=== PATIENT | male | born 1970 | race Caucasian/White ===

== ENCOUNTER 2023-09-14 09:10 | Outpatient (AMB) | payer OTHER, SELFPAY ==
--- NOTE | 2023-09-14 09:15 | A.OFFVIS_ITS ---
Vital Signs 09/14/23 09:22 Height 5 ft 11 in Weight 240 lb BMI 33.5 Blood Pressure Location Lt brachial Position Sitting Intake Visit Reasons: Colon Screening Intake Note: Patient is seen in office for colonoscopy screening. 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 male here today for pre colonoscopy screening.? Patient was sent to us by his PCP.? This is his first colonoscopy screening.? Patient denies any gastrointestinal symptoms in the past or at present.? Denies any personal or family history of gastrointestinal disease, colon polyps, or CRC.? Patient never had anesthesia in the past. Lower back surgery with epidural.? Negative for history of sleep apnea.? Denies any history of cardiac, renal, pulmonary, or hepatic disease.?? No history of infectious? diseases like hepatitis A, B, C, HIV or tuberculosis.? Patient is not on any anticoagulation therapy. [facility] Surgical History (Updated 09/14/23 @ 09:26 by RISSA Chan) History of back surgery (1996) Family History (Updated 09/14/23 @ 09:24 by RISSA Chan) Paternal Grandfather Cancer of unknown origin Social History (Updated 09/14/23 @ 09:24 by RISSA Chan) Alcohol intake: current Alcohol intake frequency: holidays/special occasions only Patient Tobacco Use Status: Never used Tobacco Physical Exam Vital Signs: BMI result Body Mass Index 33.5 Assessment & Plan Assessment & Plan (1) Screen for colon cancer: Code(s): Z12.11 - Encounter for screening for malignant neoplasm of colon Plan Patient denies any GI, cardiac or respiratory symptoms. ?Patient never had anesthesia in the past.? Denies any history of sleep apnea.? No history infectious diseases in the past or present.? Not on any anticoagulation therapy.? No family or personal history of colon cancer or polyps.? Patient denies melena, hematochezia, unintentional weight loss or ribbon like stools.? Discussed at length the pre-procedure,? prep, diet & medications as well as what to expect prior, during and after the procedure.?? Stressed the importance of good bowel prep. ?Recommended the use of Vaseline or Calmoseptine OTC & baby wipes with bowel movements to promote comfort.? ?Patient verbalizes understanding and agrees to plan of care.? He was given the opportunity to ask questions and all questions answered.? We will see him after the procedure.? Medications: New bisacodyl (Dulcolax (bisacodyl)) take 4 tabs at noon the day before your colonoscopy 20 mg (4 x 5 mg) PO ONCE 1 day 4 tabs 0RF Z12.11 - Encounter for screening for malignant neoplasm of colon polyethylene glycol 3350 (Miralax) As directed by gastroenterology department at [facility] 238 grams PO ONCE 238 grams 0RF Z12.11 - Encounter for screening for malignant neoplasm of colon Coding Level of Care Code New Pt Level 3 (72064) Diagnoses Screen for colon cancer Z12.11 Time Spent (min) 40 Comment 30 minutes spent with patient and additional 10 minutes spent reviewing his records
[2023-09-14 09:22] VITALS: BMI 33.5
== END 2023-09-14 10:02 | disposition home or self-care (01) ==
PROVIDERS: PCP Physician Assistant; Visit Provider Nurse Practitioner Family
DX: Z01.818 Encounter for other preprocedural examination (principal); Z12.11 Encounter for screening for malignant neoplasm of colon
CPT/HCPCS: S0285

== ENCOUNTER → 2023-09-14 09:10 | Outpatient (BNVA) | payer OTHER, SELFPAY | PROVIDERS: PCP Physician Assistant; Visit Provider Nurse Practitioner Family ==

== ENCOUNTER 2024-06-02 06:34 | Day surgery (SDC) | payer OTHER, SELFPAY ==
--- OUTSIDE RECORDS SUMMARY | 2024-05-02 10:50 | XMS_ITS | Continuity of Care Document ---
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 It does not include entries that were removed or entered in error. 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 Medication Details Route Status Patient Instructions Prescription Expires Prescription Number Last Dispense Date Ordering Provider Order Date Order Qty Source ATORVASTATI N CALCIUM (ATORVASTAT IN CALCIUM), 40 MG, TABLET, ORAL, MYLAN, 500 ea. BOTTLE Cancele d [id number] : 2023 0 Pharmac y Data Transac tion Service Facilit y ATORVASTATI N CALCIUM (ATORVASTAT IN CALCIUM), 40 MG, TABLET, ORAL, MYLAN, 500 ea. BOTTLE Active [id number] 4 2023 90 Pharmac y Data Transac tion Service Facilit y ATORVASTATI N CALCIUM (ATORVASTAT IN CALCIUM), 40 MG, TABLET, ORAL, MYLAN, 500 ea. BOTTLE Cancele d [id number] : 2023 0 Pharmac y Data Transac tion Service Facilit y ATORVASTATI N CALCIUM (ATORVASTAT IN CALCIUM), 80 MG, TABLET, ORAL, MYLAN, 500 ea. BOTTLE Active [id number] 4 2023 90 Pharmac y Data Transac tion Service Facilit y ATORVASTATI N CALCIUM (ATORVASTAT IN CALCIUM), 80 MG, TABLET, ORAL, MYLAN, 500 ea. BOTTLE Active [id number] 2023 90 Pharmac y Data Transac tion Service Facilit y VALACYCLOVI R (VALACYCLOV IR HCL), 500 MG, TABLET, ORAL, MYLAN, 90 ea. BOTTLE Cancele d [id number] : 2023 0 Pharmac y Data Transac tion Service Facilit y Allergies, Adverse Reactions, Alerts Combined list of allergies from Department of Defense and Veterans Affairs facilities. It does not include entries that were removed or entered in error. Substance Category Reaction Severity Reaction type Status Date Reported Comments Source No Known Allergies Drug allergy (disorder) active 06/16/2007 [place], [place] Immunizations Combined list of available immunizations from the Department of Defense and [facility] facilities. 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 Source influenza, injectable, quadrivalent- pf 2021 [id number] 150 [employer] comple t ed influenza , injectabl e, quadrival ent-pf 06/23/21 Given Ambulat ory Pharmac y influenza, injectable, quadrivalent- pf 2021 [id number] 150 [employer] comple t ed influenza , injectabl e, quadrival ent-pf 06/23/21 Given Ambulat ory Pharmac y Influenza, injectable, quadrivalent, preservative free 0 2021 [id number] 150 (IDB) complet ed Influenza , injectabl e, quadrival ent, preservat carol free [facility] meningococcal A,C,Y,W-135 (MCV4P) 2020 [id number] 114 [employer] complet ed meningoco ccal A,C,Y,W-1 35 (MCV4P) 10/11/20 Given Ambulat ory Pharmac y meningococcal A,C,Y,W-135 (MCV4P) 2020 [id number] 114 [employer] complet ed meningoco ccal A,C,Y,W-1 35 (MCV4P) 10/11/20 Given Ambulat ory Pharmac y meningococcal polysaccharid e (groups A, C, Y and W-135) diphtheria toxoid conjugate vaccine (MCV4P) 2 2020 [id number] 114 Se[employer]irus (SEQ) comple t ed meningoco ccal polysacch aride (groups A, C, Y and W-135) diphtheri a toxoid conjugate vaccine (MCV4P) DoD COVID Vaccine Moderna 2020 [id number] 207 complet ed COVID Vaccine Moderna 06/24/20 Given Ambulat ory Pharmac y COVID Vaccine Moderna 2020 [id number] 207 complet ed COVID Vaccine Moderna 06/24/20 Given Ambulat ory Pharmac y SARS-COV-2 (COVID-19) vaccine, mRNA, spike protein, LNP, preservative free, 100 mcg or 50 mcg dose 2 2020 [id number] 207 Moderna [employer] (MOD) complet ed SARS-COV- 2 (COVID-19 ) vaccine, mRNA, spike protein, LNP, preservat carol free, 100 mcg or 50 mcg dose DoD COVID Vaccine Moderna 2020 [id number] 207 complet ed COVID Vaccine Moderna 05/30/20 Given Ambulat ory Pharmac y SARS-COV-2 (COVID-19) vaccine, mRNA, spike protein, LNP, preservative free, 100 mcg or 50 mcg dose 1 2020 [id number] 207 Moderna [employer] (MOD) complet ed SARS-COV- 2 (COVID-19 ) vaccine, mRNA, spike protein, LNP, preservat carol free, 100 mcg or 50 mcg dose DoD influenza, injectable, quadrivalent- pf 2019 [id number] 150 Seqirus complet ed influenza , injectabl e, quadrival ent-pf 03/11/20 Given Ambulat ory Pharmac y influenza, injectable, quadrivalent- pf 2019 [id number] 278 150 Se[employer] complet ed influenza , injectabl e, quadrival ent-pf 03/11/20 Given Ambulat ory Pharmac y Influenza, injectable, quadrivalent, preservative free 0 2019 [id number] 278 150 Seqirus (SEQ) complet ed Influenza , injectabl e, quadrival ent, preservat carol free DoD tetanus, diphtheria, acellular pertu is 2019 [id number] 115 sanofi pasteur complet ed tetanus, diphtheri a, acellular pertussis 05/30/19 Given Ambulat ory Pharmac y tetanus, diphtheria, acellular pertu is 2019 [id number] 115 sanofi pasteur complet ed tetanus, diphtheri a, acellular pertussis 05/30/19 Given Ambulat ory Pharmac y tetanus toxoid, reduced diphtheria toxoid, and acellular pertu is vaccine, adsorbed 2 2019 [id number] 115 Sanofi Pasteur (PMC) complet ed tetanus toxoid, reduced diphtheri a toxoid, and acellular pertussis vaccine, adsorbed DoD influenza, injectable, quadrivalent- pf 2018 [id number] 038 150 Seqirus complet ed influenza , injectabl e, quadrival ent-pf 02/22/19 Given Ambulat ory Pharmac y influenza, injectable, quadrivalent- pf 2018 [id number] 038 150 Seqirus complet ed influenza , injectabl e, quadrival ent-pf 02/22/19 Given Ambulat ory Pharmac y Influenza, injectable, quadrivalent, preservative free 0 2018 [id number] 038 150 Seqirus (SEQ) complet ed Influenza , injectabl e, quadrival ent, preservat carol free DoD influenza, seasonal, injectable-pf 2017 [id number] 140 Seqirus complet ed influenza , seasonal, injectabl e-pf 03/01/18 Given Ambulat ory Pharmac y influenza, seasonal, injectable-pf 2017 [id number] 140 Seqirus complet ed influenza , seasonal, injectabl e-pf 03/01/18 Given Ambulat ory Pharmac y Influenza, seasonal, injectable, preservative free 0 2017 [id number] 140 Seqirus (SEQ) comple t ed Influenza , seasonal, injectabl e, preservat carol free DoD influenza, injectable, quadrivalent- pf 2017 [id number] 150 Seqirus complet ed influenza , injectabl e, quadrival ent-pf 06/25/17 Given Ambulat ory Pharmac y influenza, injectable, quadrivalent- pf 2017 [id number] 150 Seqirus complet ed influenza , injectabl e, quadrival ent-pf 06/25/17 Given Ambulat ory Pharmac y Influenza, injectable, quadrivalent, preservative free 0 2017 [id number] 150 Seqirus (SEQ) comple t ed Influenza , injectabl e, quadrival ent, preservat carol free DoD influenza, injectable, quadrivalent 2015 [id number] 158 Seqirus complet ed influenza , injectabl e, quadrival ent 03/16/16 Given Ambulat ory Pharmac y influenza, injectable, quadrivalent 2015 [id number] 158 Seqirus complet ed influenza , injectabl e, quadrival ent 03/16/16 Given Ambulat ory Pharmac y influenza, injectable, quadrivalent, contains preservative 0 2015 [id number] 158 Seqirus (SEQ) comple t ed influenza , injectabl e, quadrival ent, contains preservat carol DoD influenza, seasonal, injectable-pf 2014 [id number] 140 CSL Behring complet ed influenza , seasonal, injectabl e-pf 02/18/15 Given Ambulat ory Pharmac y influenza, seasonal, injectable-pf 2014 [id number] 140 CSL [employer]ring complet ed influenza , seasonal, injectabl e-pf 02/18/15 Given Ambulat ory Pharmac y Influenza, seasonal, injectable, preservative free 1 2014 [id number] 140 [employer]SL [employer] (CSL) complet ed Influenza , seasonal, injectabl e, preservat carol free DoD measles/mumps /rubella virus vaccine 2014 [id number] 03 Merck & Company Inc complet ed measles/m umps/rube lla virus vaccine 08/21/14 Given Ambulat ory Pharmac y measles/mumps /rubella virus vaccine 2014 [id number] 03 Merck & Company Inc complet ed measles/m umps/rube lla virus vaccine 08/21/14 Given Ambulat ory Pharmac y measles, mumps and rubella virus vaccine 0 2014 [id number] 03 Merck (MSD) complet ed measles, mumps and rubella virus vaccine DoD varicella virus vaccine 2 2014 UNK 21 Unknown (UNK) Not Given varicella virus vaccine DoD influenza, seasonal, injectable-pf 2013 [id number] 140 GlaxoSmithKli ne complet ed influenza , seasonal, injectabl e-pf 02/12/14 Given Ambulat ory Pharmac y influenza, seasonal, injectable-pf 2013 [id number] 140 GlaxoSmithKli ne complet ed influenza , seasonal, injectabl e-pf 02/12/14 Given Ambulat ory Pharmac y Influenza, seasonal, injectable, preservative free 1 2013 [id number] 140 [facility] (SKB) complet ed Influenza , seasonal, injectabl e, preservat carol free DoD Influenza, injectable, MDCK, preservative free 2013 TARIK TAFOYA () Not Given Influenza , injectabl e, MDCK, preservat carol free DoD influenza, seasonal, injectable-pf 2012 140 complet ed influenza , seasonal, injectabl e-pf 02/09/13 Given Ambulat ory Pharmac y Influenza, seasonal, injectable, preservative free 0 2012 140 (MVX) complet ed Influenza , seasonal, injectabl e, preservat carol free DoD influenza virus vaccine, live 2011 [id number] 111 CSL Behring complet ed influenza virus vaccine, live 02/12/12 Given Ambulat ory Pharmac y influenza virus vaccine, live 2011 [id number] 111 [employer] complet ed influenza virus vaccine, live 02/12/12 Given Ambulat ory Pharmac y influenza virus vaccine, live, attenuated, for intranasal use 1 2011 [id number] 111 [employer]SL [employer] (CSL) complet ed influenza virus vaccine, live, attenuate d, for intranasa l use DoD influenza, seasonal, injectable 2010 [id number] 141 sanofi pasteur complet ed influenza , seasonal, injectabl e 04/03/11 Given Ambulat ory Pharmac y influenza, seasonal, injectable 2010 [id number] 141 sanofi pasteur complet ed influenza , seasonal, injectabl e 04/03/11 Given Ambulat ory Pharmac y Influenza, seasonal, injectable 6 2010 [id number] 141 Sanofi Pasteur ([facility]) complet ed Influenza , seasonal, injectabl e DoD vaccinia (smallpox) vaccine 2009 VV04-00 3A 75 Unknown complet ed vaccinia (smallpox ) vaccine 12/14/09 Given Ambulat ory Pharmac y typhoid Vi capsular polysaccharid e vac 2009 [id number] 101 sanofi pasteur complet ed typhoid Vi capsular polysacch aride vac 12/14/09 Given Ambulat ory Pharmac y anthrax vaccine 2009 [id number] 24 [employer] complet ed anthrax vaccine 12/14/09 Given Ambulat ory Pharmac y typhoid Vi capsular polysaccharid e vac 2009 [id number] 101 sanofi pasteur complet ed typhoid Vi capsular polysacch aride vac 12/14/09 Given Ambulat ory Pharmac y vaccinia (smallpox) vaccine 2009 VV04-00 3A 75 Unknown complet ed vaccinia (smallpox ) vaccine 12/14/09 Given Ambulat ory Pharmac y anthrax vaccine 2009 [id number] 24 [employer] complet ed anthrax vaccine 12/14/09 Given Ambulat ory Pharmac y anthrax vaccine 5 2009 [id number] 24 [employer] [place] (MIP) complet ed anthrax vaccine DoD vaccinia (smallpox) vaccine 1 2009 VV04-00 3A 75 Unknown (UNK) complet ed vaccinia (smallpox ) vaccine DoD typhoid Vi capsular polysaccharid e vaccine 1 2009 [id number] 101 Sanofi Pasteur (PMC) complet ed typhoid Vi capsular polysacch aride vaccine DoD tetanus, diphtheria, acellular pertu is 2008 [id number] 115 sanofi pasteur complet ed tetanus, diphtheri a, acellular pertussis 05/14/09 Given Ambulat ory Pharmac y influenza virus vaccine, live 2008 [id number] 111 [employer] comple t ed influenza virus vaccine, live 05/14/09 Given Ambulat ory Pharmac y influenza virus vaccine, live 2008 [id number] 111 [employer] Inc comple t ed influenza virus vaccine, live 05/14/09 Given Ambulat ory Pharmac y tetanus, diphtheria, acellular pertu is 2008 [id number] 115 sanofi pasteur complet ed tetanus, diphtheri a, acellular pertussis 05/14/09 Given Ambulat ory Pharmac y influenza virus vaccine, live, attenuated, for intranasal use 1 2008 [id number] 111 [employer] Inc[employer] (MED) complet ed influenza virus vaccine, live, attenuate d, for intranasa l use DoD tetanus toxoid, reduced diphtheria toxoid, and acellular pertu is vaccine, adsorbed 1 2008 [id number] 115 Sanofi Pasteur ([facility]) complet ed tetanus toxoid, reduced diphtheri a toxoid, and acellular pertussis vaccine, adsorbed DoD hepatitis B adult vaccine 2007 [id number] 43 GlaxoSmithKli ne complet ed hepatitis B adult vaccine 03/22/08 Given Ambulat ory Pharmac y influenza virus vaccine, live 2007 [id number] 111 [facility]Life [facility] comple t ed influenza virus vaccine, live 03/22/08 Given Ambulat ory Pharmac y hepatitis B adult vaccine 2007 [id number] [id number] 43 GlaxoSmithKli ne complet ed hepatitis B adult vaccine 03/22/08 Given Ambulat ory Pharmac y hepatitis B vaccine, adult dosage 3 2007 [id number] 43 [facility] (SKB) complet ed hepatitis B vaccine, adult dosage DoD influenza virus vaccine, live, attenuated, for intranasal use 1 2007 [id number] 111 [employer] Inc[employer] (MED) complet ed influenza virus vaccine, live, attenuate d, for intranasa l use DoD anthrax vaccine 2007 [id number] 24 [employer] complet ed anthrax vaccine 08/18/07 Given Ambulat ory Pharmac y influenza virus vaccine,split 2007 [id number] 15 GlaxoSmithKli ne complet ed influenza virus vaccine,s plit 08/18/07 Given Ambulat ory Pharmac y hepatitis B adult vaccine 2007 [id number] [id number] 43 GlaxoSmithKli ne complet ed hepatitis B adult vaccine 08/18/07 Given Ambulat ory Pharmac y anthrax vaccine 2007 [id number] 24 [employer] complet ed anthrax vaccine 08/18/07 Given Ambulat ory Pharmac y influenza virus vaccine,split 2007 [id number] 15 GlaxoSmithKli ne complet ed influenza virus vaccine,s plit 08/18/07 Given Ambulat ory Pharmac y hepatitis B adult vaccine 2007 [id number] 8AA 43 GlaxoSmithKli ne complet ed hepatitis B adult vaccine 08/18/07 Given Ambulat ory Pharmac y influenza virus vaccine, split virus (incl. purified surface antigen)-reti red CODE 1 2007 [id number] 15 [facility] (B) complet ed influenza virus vaccine, split virus (incl. purified surface antigen)- retired CODE DoD anthrax vaccine 4 2007 [id number] [employer] [place] ([facility]) complet ed anthrax vaccine DoD hepatitis B vaccine, adult dosage 2 2007 [id number] [id number] 43 [facility] (B) complet ed hepatitis B vaccine, adult dosage DoD hepatitis B adult vaccine 2006 [id number] 43 Merck & Company Inc complet ed hepatitis B adult vaccine 01/28/07 Given Ambulat ory Pharmac y hepatitis B vaccine, adult dosage 1 2006 [id number] 43 [employer] ([employer]) (MSD) complet ed hepatitis B vaccine, adult dosage DoD anthrax vaccine 2006 [id number] 24 [employer] complet ed anthrax vaccine 12/23/06 Given Ambulat ory Pharmac y anthrax vaccine 3 2006 [id number] 24 [employer] [place] ([facility]) complet ed anthrax vaccine DoD anthrax vaccine 2005 [id number] 24 [employer] complet ed anthrax vaccine 05/08/06 Given Ambulat ory Pharmac y anthrax vaccine 2005 [id number] 24 [employer] complet ed anthrax vaccine 05/08/06 Given Ambulat ory Pharmac y anthrax vaccine 2 2005 [id number] 24 [employer] [place] ([facility]) complet ed anthrax vaccine DoD anthrax vaccine 2005 [id number] 24 [employer] complet ed anthrax vaccine 04/14/06 Given Ambulat ory Pharmac y influenza virus vaccine,split 2005 [id number] 15 sanofi pasteur complet ed influenza virus vaccine,s plit 04/14/06 Given Ambulat ory Pharmac y anthrax vaccine 2005 [id number] 24 [employer] complet ed anthrax vaccine 04/14/06 Given Ambulat ory Pharmac y influenza virus vaccine,split 2005 [id number] 15 sanofi pasteur complet ed influenza virus vaccine,s plit 04/14/06 Given Ambulat ory Pharmac y influenza virus vaccine, split virus (incl. purified surface antigen)-reti red CODE 1 2005 [id number] 15 Sanofi Pasteur ([facility]) complet ed influenza virus vaccine, split virus (incl. purified surface antigen)- retired CODE DoD varicella virus vaccine 0 2005 21 () Not Given varicella virus vaccine DoD anthrax vaccine 1 2005 [id number] 24 [employer] [facility] ([facility]) complet ed anthrax vaccine DoD influenza virus vaccine,split 2004 [id number] 15 sanofi pasteur complet ed influenza virus vaccine,s plit 03/13/05 Given Ambulat ory Pharmac y influenza virus vaccine, split virus (incl. purified surface antigen)-reti red CODE 1 2004 [id number] 15 Sanofi Pasteur ([facility]) complet ed influenza virus vaccine, split virus (incl. purified surface antigen)- retired CODE DoD hepatitis A adult vaccine 2004 [id number] 52 Merck & Company Inc complet ed hepatitis A adult vaccine 12/04/04 Given Ambulat ory Pharmac y hepatitis A adult vaccine 2004 [id number] 52 Merck & Company Inc complet ed hepatitis A adult vaccine 12/04/04 Given Ambulat ory Pharmac y hepatitis A vaccine, adult dosage 2 2004 [id number] 52 Merck (MSD) complet ed hepatitis A vaccine, adult dosage DoD tuberculin purified protein derivative 2001 UNK 96 Unknown complet ed tuberculi n purified protein derivativ e 08/09/01 Given Ambulat ory Pharmac y tuberculin purified protein derivative 2000 NONE 96 Unknown complet ed tuberculi n purified protein derivativ e 01/21/01 Given Ambulat ory Pharmac y hepatitis A adult vaccine 2000 UNK 52 Unknown complet ed hepatitis A adult vaccine 11/28/00 Given Ambulat ory Pharmac y hepatitis A adult vaccine 2000 UNK 52 Unknown complet ed hepatitis A adult vaccine 11/28/00 Given Ambulat ory Pharmac y hepatitis A vaccine, adult dosage 1 2000 UNK 52 Unknown (UNK) comple t ed hepatitis A vaccine, adult dosage DoD hepatitis A adult vaccine 2000 UNK 52 Unknown complet ed hepatitis A adult vaccine 11/27/00 Given Ambulat ory Pharmac y hepatitis A vaccine, adult dosage 1 2000 UNK 52 Unknown (UNK) comple t ed hepatitis A vaccine, adult dosage DoD poliovirus vaccine, unspecified 1999 UNK 89 Unknown complet ed polioviru s vaccine, unspecifi ed 04/18/00 Given Ambulat ory Pharmac y yellow fever vaccine 1999 UNK 37 Unknown complet ed yellow fever vaccine 04/18/00 Given Ambulat ory Pharmac y tetanus-dipht h toxoids (Td) adult/adol 1999 UNK 09 Unknown complet ed tetanus-d iphth toxoids (Td) adult/ado l 04/18/00 Given Ambulat ory Pharmac y poliovirus vaccine, unspecified 1999 UNK 89 Unknown complet ed polioviru s vaccine, unspecifi ed 04/18/00 Given Ambulat ory Pharmac y tetanus-dipht h toxoids (Td) adult/adol 1999 UNK 09 Unknown complet ed tetanus-d iphth toxoids (Td) adult/ado l 04/18/00 Given Ambulat ory Pharmac y yellow fever vaccine 1999 UNK 37 Unknown complet ed yellow fever vaccine 04/18/00 Given Ambulat ory Pharmac y tetanus and diphtheria toxoids, adsorbed, preservative free, for adult use (2 Lf of tetanus toxoid and 2 Lf of diphtheria toxoid) 0 1999 UNK 09 Unknown (UNK) comple t ed tetanus and diphtheri a toxoids, adsorbed, preservat carol free, for adult use (2 Lf of tetanus toxoid and 2 Lf of diphtheri a toxoid) DoD yellow fever vaccine 0 1999 UNK 37 Unknown (UNK) comple t ed yellow fever vaccine DoD poliovirus vaccine, unspecified formulation 0 1999 UNK 89 Unknown (UNK) comple t ed polioviru s vaccine, unspecifi ed formulati on DoD typhoid vaccine, unspecified formulation 1999 UNK 91 Unknown complet ed typhoid vaccine, unspecifi ed formulati on 02/29/00 Given Ambulat ory Pharmac y typhoid vaccine, unspecified formulation 1999 UNK 91 Unknown complet ed typhoid vaccine, unspecifi ed formulati on 02/29/00 Given Ambulat ory Pharmac y typhoid vaccine, unspecified formulation 0 1999 UNK 91 Unknown (UNK) comple t ed typhoid vaccine, unspecifi ed formulati on DoD meningococcal polysaccharid e (MPSV4) 1999 UNK 32 Unknown complet ed meningoco ccal polysacch aride (MPSV4) 02/17/00 Given Ambulat ory Pharmac y measles/mumps /rubella virus vaccine 1999 UNK 03 Unknown complet ed measles/m umps/rube lla virus vaccine 02/17/00 Given Ambulat ory Pharmac y measles/mumps /rubella virus vaccine 1999 UNK 03 Unknown complet ed measles/m umps/rube lla virus vaccine 02/17/00 Given Ambulat ory Pharmac y meningococcal polysaccharid e (MPSV4) 1999 UNK 32 Unknown complet ed meningoco ccal polysacch aride (MPSV4) 02/17/00 Given Ambulat ory Pharmac y measles, mumps and rubella virus vaccine 0 1999 UNK 03 Unknown (UNK) comple t ed measles, mumps and rubella virus vaccine DoD meningococcal polysaccharid e vaccine (MPSV4) 0 1999 UNK 32 Unknown (UNK) comple t ed meningoco ccal polysacch aride vaccine (MPSV4) DoD Vital Signs Combined list of inpatient and outpatient Vital Signs from Department of Defense and Veterans Affairs, ranging from 12 months to all on record, depending upon the facility. Vital Sign Value Date Comments Source No data available for this section Ambulatory Pharmacy Encounters Combined list of: 1) Encounters from Department of Veterans Affairs facilities going back up to thelast 18 months. 2) Encounters from the Department of Defense facilities going back up to 280 months. Location Location Details Encounter Type Encounter Number Reason For Visit Attending Provider ADM Date DC Date Status Disposition Source [facility] OUTPATIENT [id number] cdtf/tr stefani/ KIMBERLY Nassar 08/01 Released w/o Limitations [facility] F) [facility] DENTAL [id number] exam MARCELA HERMAN 02/01 Released w/o Limitations [facility] ) [facility]) DENTAL [id number] ANNIE Hairston 02/01 Released w/o Limitations [facility](D ental Clinic FLORES) [place]([facility]) OUTPATIENT [id number] MEDS ( 1-181,P RT MARILU REYNOLDS) MARISA ANDRE ALAN 01/03 Released w/o Limitations [place]([facility]) [facility] OUTPATIENT [id number] 03/15 Released w/o Limitations [facility] OUTPATIENT [id number] 07/05 Released w/o Limitations Theater Facilit y [facility](Patrick scom [facility] Team B) TELE CONSULT [id number] RONALDO Zepeda 08/11 [facility](H anscom [facility] Team B) [facility](Opt ometry [facility]) OUTPATIENT [id number] Annual Eye [facility] 08/24 Released w/o Limitations [facility](O ptometr y Cl [facility]) [facility](Opt ometry Cl [facility]) OUTPATIENT [id number] f/u retinal hemorrh age superfi cial left eye [facility] 10/07 Released w/o Limitations [address] [place] [address](O ptometr y Cl [place]) [place], [place]([facility]) OUTPATIENT [id number] Notes Entered by: ERIKA MARSHALL 27 Feb 2016 0612 ------- ------- ------- ------- -- Metabol ic Test BRENDAN CHASE 02/26 Released w/o Limitations [place], [place]([facility]) [place]([facility]) OUTPATIENT [id number] Notes Entered by: ERIKA MARSHALL 29 Feb 2016 0715 ------- ------- ------- ------- -- LISA CAMEJO 02/28 Released w/o Limitations [place], [place]([facility]) [address] [place] [address]([facility] Team [facility]) TELE CONSULT [id number] Notes Entered by: ALL MORELREINIER NANCY 28 Oct 2021 1014 ------- ------- ------- ------- -- Other - Separat ing from INDU Vital 10/28 Other Not Elsewhere Classified [facility]) [facility]) TELE CONSULT [id number] Notes Entered by: MARSHALL KAUR 10 Dec 2021 1106 ------- ------- ------- ------- -- OTHER- INDU MARTÍNEZ 12/10 Other Not Elsewhere Classified [facility]) [address] [place] [address]([facility]) OUTPATIENT [id number] [facility] Resched VERONICA Talbert 12/17 Released w/o Limitations [address] [place] [address] Group([facility]) [address] [place] [address]([facility]) OUTPATIENT [id number] [facility] hearing exam JOANNE BUENO 12/18 Released w/o Limitations [address] [place] [address]([facility]) Procedures Combined list of: 1) Procedures from Department of Veterans Affairs facilities [facility], not all VA non-surgical procedures are included; 2) All procedures from the Department of Defense facilities. Procedure Procedure Type Code Date Perfomer Comments Sourc e No data available for this section Ambulatory Pharmacy Weight management cla es, non-physician provider, per se ion 2015 LISA NIETO DoD Vital Signs Recorded Vital Signs Recorded 2015 BRENDAN CHASE Pulmon Function - O2 Uptake - Gas Analysis [place], [place] Pulmon Function - [place]2 [place] [address] 2015 BRENDAN CHASE Ophthalmological Prior Patient Start Comprehensive Care Ophthalmological Prior Patient Start Comprehensive Care 06783 2011 FOREST SAL[facility]ON [facility] Determination Of Refractive State Determination Of Refractive State 30805 2011 [facility] Ophthalmological New Patient Start Comprehensive Care Ophthalmological New Patient Start Comprehensive Care 06147 2011 [facility] Health And Behav A e mt Each 15 Min Initial A e ment Health And Behav Assessmt Each 15 Min Initial Assessment 47112 2010 LISA CANDELARIO [facility] Clinical Social Work Individual Outpatient Counseling 30 Minutes Clinical Social Work Individual Outpatient Counseling 30 Minutes 40135 2009 MONIQUE HANNAH [facility] Threshold Audiogram (Pure Tone) Threshold Audiogram (Pure Tone) 60251 JOANNE BUENO [facility] Preventive Medicine Administration Of Health Risk Questionnaire Patient-Focused Preventive Medicine Administration Of Health Risk Questionnaire Patient-Focused 04551 VERONICA IBARRA [facility] Threshold Audiogram Right Ear Threshold Audiogram Right Ear 15498 FREDCHIRAG VargasTTE [facility] Threshold Audiogram Left Ear Threshold Audiogram Left Ear 27364 FRED, VERONICA [facility] PURE TONE AUDIOMETRY (THRESHOLD); AIR ONLY 2002 [facility] OPHTHALMOLOGICAL SERVICES: MEDICAL EXAMINATION AND EVALUATION, WITH INITIATION OR CONTINUATION OF DIAGNOSTIC AND TREATMENT PROGRAM; COMPREHENSIVE, ESTABLISHED PATIENT, 1 OR MORE VISITS 2002 [facility] ELECTROCARDIOGRAM, ROUTINE ECG WITH AT LEAST 12 LEADS; TRACING ONLY, WITHOUT INTERPRETATION AND REPORT 2002 [facility] PURE TONE AUDIOMETRY (THRESHOLD); AIR ONLY 2010 [facility] HEALTH&BEHAV ASSESSMENT (EG, HEALTH-FOC CLINICAL INTERVIEW, BEHAVIORAL OBSERVATIONS, PSYCHOPHYSICOLOGICAL MONITOR, HEALTH-ORIENT QUESTIONNAIRES), EA 15 MIN [id number] W THE PATIENT; INIT ASSESSMENT 2010 [facility] PURE TONE AUDIOMETRY (THRESHOLD); AIR ONLY 2010 [facility] TYPHOID VACCINE, CAPSULAR POLYSACCHARIDE (VICPS), FOR INTRAMUSCULAR USE 2009 [facility] PURE TONE AUDIOMETRY (THRESHOLD); AIR ONLY 2009 [facility] INDIVIDUAL PSYCHOTHERAPY, INSIGHT ORIENTED, BEHAVIOR MODIFYING AND/OR SUPPORTIVE, IN AN OFFICE OR OUTPATIENT FACILITY, APPROXIMATELY 20 TO 30 MINUTES [id number] WITH THE PATIENT 2009 [facility] PURE TONE AUDIOMETRY (THRESHOLD); AIR ONLY 2021 [facility] OPHTHALMOLOGICAL SERVICES: MEDICAL EXAMINATION AND EVALUATION, WITH INITIATION OR CONTINUATION OF DIAGNOSTIC AND TREATMENT PROGRAM; COMPREHENSIVE, ESTABLISHED PATIENT, 1 OR MORE VISITS 2011 [facility] DETERMINATION OF REFRACTIVE STATE 2011 [facility] MEDICAL NUTRITION THERAPY; GROUP (2 OR MORE INDIVIDUAL(S)), EACH 30 MINUTES 2005 [facility] SCREENING TEST, PURE TONE, AIR ONLY 2004 [facility] WEIGHT MANAGEMENT CLASSES, NON-PHYSICIAN PROVIDER, PER SESSION 2015 [facility] VITAL SIGNS (TEMPERATURE, PULSE, RESPIRATORY RATE, AND BLOOD PRESSURE) DOCUMENTED AND REVIEWED (CAP) (EM) 2015 [facility]D Social History Combined list of available smoking, tobacco, and other social history from Department of Defense and Veterans Affairs facilities. Social History Type Response Date Comment Sourc e This section is an empty social history section. DoD Assessment and Plan Combined list of future care activities from Department of Defense and Veterans Affairs facilities (e.g., assessment and plan notes, appointments, orders, and referrals). Additional future care activities may be listed in the Plan of Care section. Result Assessment and Plan Date Source Assessment and Plan No data available for this section 05/02/2024 Ambulatory Pharmacy Functional Status Combined list of recent functional and cognitive assessments recorded at Department of Defense and Veterans Affairs (DE).VA Functional Power Measurement (FIM) Scale: 1 = Total Assistance (Subject = 0% +), 2 = Maximal Assistance (Subject = 25% +), 3 = Moderate Assistance (Subject = 50% +), 4 = Minimal Assistance (Subject = 75% +), 5 = Supervision, 6 = Modified Power (Device), 7 = Complete Power (Timely, Safely). Assessment Date/Time Source Assessment Type Assessment Skill Assessment Score Assessment Details No data available for this section
--- OUTSIDE RECORDS SUMMARY | 2024-05-02 10:50 | XMS_ITS | Data Portability ---
Author Organization [facility] Home Service Address [address] [facility] [place] [address] Assessment Encounter Date Assessment Date Assessment LastModified by Organization Details LastModified Time 11/19/2021 11/19/2021 Patient agreed and verbally consents to this audio and video Telehealth appt via a secure platform [email or web address] Not available 11/19/2021 14:03:13 Plan of Treatment Reminders Order Date Submit Date Provider Last Modified By Organization Details Last Modified Time Details Appointments None recorded. Lab lipid panel, serum 2020 021 [facility], [address] [place] [address], [place], [address], 14:06:59 Referral orthopedic referral 2018 019 DIDIER Ulloa MD, [address] [place], [address], 9 13:11:52 Procedures None recorded. Surgeries None recorded. Imaging XR, shoulder 2018 019 [facility], [address] [place], [address], 9 14:14:44 MRI, shoulder, w/o contrast 2018 019 [email or web address], [address] [place] [address], [address], 9 08:13:34 Medication Orders Patanol 0.1 % eye drops 2018 [facility], [address] [place], [place], [id number], 9 10:46:37 atorvastat in 40 mg tablet 2020 021 [email or web address] [facility]57297, [address] [place], [place], [id number], 4 10:08:15 valacyclov ir 500 mg tablet 2021 022 DIDIER [facility] #85774, [address] [place], [place], [id number], 2 14:02:52 Patient TargetsNo targets recorded. Patient InstructionsNo instructions recorded. Reason for Referral Orthopedic Referral for Rupt ure of rotator cuff of right shoulder right shoulder rotator injury Referring Physician: Alex Chisholm, Internal Medicine, Encounter Date: 09/03/2018 Results Created Date Observation Date Name Description Value Unit Range Abnormal Flag Note LastModifiedBy Organization Detail LastModifiedTime 09/04/19 19 09/03/2018 XR, shoul sallie No observ ation record ed. [email or web address] [address], [address], 09/03/2018 14:37:59 09/09/19 19 09/08/2018 MRI, shoul sallie, w/o contr ast No observ ation record ed. [email or web address] [facility] [address] [place], [address], 09/08/2018 15:08:17 Result Notes None recorded. 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 Procedures Surgical History None recorded. Imaging Results Imaging Date Name Status LastModified by Organiz [facility] Details LastModified Time 09/03/2018 XR, shoulder completed [email or web address] [address], [address], 09/03/2018 14:37:59 09/08/2018 MRI, shoulder, w/o contrast completed [email or web address] [facility] [address], [address], 09/08/2018 15:08:17 Procedure Notes None recorded. Medical Equipment None Reported. Allergies No known drug allergies Medications Name Sig Start Date Stop Date Status Note LastModified by Organization Details LastModified Time atorvastati n 40 mg tablet TAKE 1 TABLET BY MOUTH EVERY DAY. NEED APPT FOR 90 DAYS SUPPLY 06/02 completed Not Available Not Available Not Available atorvastati n 80 mg tablet TAKE 1 TABLET BY MOUTH EVERY DAY active Not Available Not Available No t Available valacyclovi r 500 mg tablet TAKE 2000 mg BID for five days; after that take 500 mg BID for 4 days active Not Available Not Available No t Available olopatadine 0.1 % eye drops INSTILL 1 DROP INTO AFFECTED EYE(S) BY OPHTHALMI C ROUTE 2 TIMES PER DAY AT AN INTERVAL OF 6 TO 8 HOURS 09/03 completed Not Available Not Available Not Available zolpidem 10 mg tablet TAKE 1 TABLET BY MOUTH EVERY DAY FOR 14 DAYS active Not Available Not Available No t Available Vitals Date Recorded Body weight Heart rate Oxygen saturation Oxygen saturation in Arterial blood by Pulse oximetry Systolic blood pressure Diastolic blood pressure Provider Name and Address Organization Details Last Updated DateTime 1 226552. 94 g 80 /min 97 % 97 % 128 mm[Hg] 80 mm[Hg] Samira James [facility] 1 13:54:11 Date Recorded Body weight Heart rate Oxygen saturation Oxygen saturation in Arterial blood by Pulse oximetry Systolic blood pressure Diastolic blood pressure Provider Name and Address Organization Details Last Updated DateTime 9 053485. 24 g 70 /min 97 % 97 % 120 mm[Hg] 80 mm[Hg] Jackie Piña [facility] 9 16:15:44 Date Recorded Body weight Heart rate Oxygen saturation Oxygen saturation in Arterial blood by Pulse oximetry Systolic blood pressure Diastolic blood pressure Provider Name and Address Organization Details Last Updated DateTime 9 910820. 88 g 92 /min 96 % 96 % 120 mm[Hg] 70 mm[Hg] Samira James [facility] 9 10:47:36 Social History Question Answer Notes LastModified by Organizat ion Details LastModified Time Tobacco Smoking Status Never Smoker Not Available [facility] 03/20/2020 03:36:24 What Was The Date Of Your Most Recent Tobacco Screening? 10/19/2020 [email or web address] Information not available 10/19/2020 Sex: Unknown Functional Status None recorded. Mental Status None recorded. Family History Nothing Reported. Medical History No medical history recorded. Immunizations Vaccine Type Date Status Note Provider Nam e and Address Organization Details Recorded Time Influenza, split virus, quadrivalent, preservative 8 completed Samira James [facility] 09/03/2018 10:46:52 COVID-19, mRNA, LNP-S, PF, 100 mcg/0.5mL dose or 50 mcg/0.25mL dose 1 completed ARAMIS CLAY [address] [place] [address], [address], [facility] 10/19/2020 14:06:42 COVID-19, mRNA, LNP-S, PF, 100 mcg/0.5mL dose or 50 mcg/0.25mL dose completed ARAMIS CLAY [address] [place], [address], [facility] 10/19/2020 14:06:53 Past Encounters Encounter ID Performer Location Encounter Start Date Encounter Closed Date Diagnosis/Indication Diagnosis SNOMED-CT Code Diagnosis ICD10 Code [id number] August GladysKETTY [facility] [address] [facility],[place] [address] 07/19/2018 16:04:01 07/19/2018 16:29:14 Allergic conjunctivitis 223180127 H10.13 [id number] Alex Chisholm DO [facility] [address] [place] [address],[place] [address] 09/03/2018 10:34:25 09/03/2018 12:23:12 Rupture of rotator cuff of right shoulder [id number] 8990217 M75.101 [id number] ARAMIS CLAY [facility] [address] [place] [address],[place] [address] 10/19/2020 13:48:57 10/19/2020 14:41:33 Mixed hypercholesterolemia and hypertriglyceridemia 325566195 E78.2 [id number] ARAMIS CLAY [facility] [address] [place] [address],[place] [address] 11/19/2021 13:28:06 11/19/2021 14:31:48 Herpesvirus infection 78195433 B00.89 Herpes simplex 28589869 B00.1 Health Concerns Section Related Observation LastModified by Organization Detai ls LastModified Time None Recorded Concern Status LastModified by Organization Details LastModified Time None Recorded Advance Directives Directive None Recorded Payers Encounter Date Sequence Insurance Name Policy Number Policy Holcomb Covered Member ID Holcomb Member ID Guarantor Name 09/03/2018 1 [facility] PRIOR TO 05/18/2024 - [employer] () Alex Olivera [id number] Alex Barba Jarod 10/19/2020 1 [facility] PRIOR TO 2024 - [employer] () Alex Smithin [id number] Alex Barba Jarod 11/19/2021 1 [facility] [place] PRIOR TO 2024 - [employer] () Alex Olivera [id number] Alex Barba Jarod Notes Date Note Type Note Provider Name a nd Address Organization Details Recorded Time 07/19/2018 text/html 2 weeks ago had eye crusting and irritation. he went to [place] and it went away but then sx came back when he came back from [place]. eyes are itchy wakes up with gooey discharge kids have no sx tried left over abx drops no help 12 system ROS negative except where noted above- denies: chest pain, palpitations, sob, ankle swelling, visual problems, hearing problems, muscle aches or pains, numbness or tingling extremities, abdominal pain, bowel issues, bladder issues, sexual dysfunction, abnormal bleeding, sx of sinus/respiratory infection , headaches, dizziness/lighthea dedness, rashes, or nail changes. KETTY Shetty [address] [place], [address], [facility] 07/19/2018 16:27:22 09/03/2018 text/html relates his righ t shoulder has been sore for the last few months relates that he has been getting worse over time hurts with any amount of rotation no specific injury Alex Chisholm DO [address] [place], [address], [facility] 09/03/2018 11:35:19 10/19/2020 text/html c/o cholesterol the patient reports that he is in [employer] states that he will be going to [place] for re-training, the patient reports that he had to have blood work done and found from the PA-C that were out of whack the patient brought in a copy of his blood work, his cholesterol is 280, LDL unable to be calculated, triglycerides were 1200 which explains why his LDL could not be calculated, HDL was low at 32 discussed options, the patient should start higher dose statin for cholesterol control and be rechecked in 6 mo to see how effective on how it is for him the patient will let me know if there side effects with the medication he will also work on his diet and exercise ARAMIS CLAY [address] [place], [address], [facility] 10/19/2020 14:13:28 11/19/2021 text/html c/o rash telemed phone callpatient consents to phone call the patient has a hx of HSV, has used valtrex prior with good effectpatient has had a cold recently and been in the sun a lot, developed a flare up of his HSVrequesting new scriptgiven this is a current, active flare up with dose appropriately to the higher end and then decrease to regular suppression strength patient agrees with that plan he also needs a print out of his medical hx at the practice as he is retiring from the [employer] duty [employer] soon ARAMIS CLAY [address] [place], [address], [facility] 11/19/2021 14:05:58
[2024-05-31 12:55] VITALS: BMI 33.5
--- NOTE | 2024-06-01 09:27 | HO.ANESPROP2 ---
Documented by User: Lashon Jimenez NP 06/01/24 09:28 HPI - Anesthesia Eval Consult details Narrative: 53yo M for Colonoscopy [facility] Past Medical History Medical History (Updated 06/01/24 @ 09:28 by Lashon Jimenez NP) HSV infection HLD (hyperlipidemia) Family History Family History (Updated 09/14/23 @ 09:24 by RISSA Chan) Paternal Grandfather Cancer of unknown origin Surgical History Surgical History (Updated 09/14/23 @ 09:26 by RISSA Chan) History of back surgery (1996) Social History Social History (Updated 09/14/23 @ 09:24 by RISSA Chan) Alcohol intake: current Alcohol intake frequency: holidays/special occasions only Patient Tobacco Use Status: Never used Tobacco Have you been hit, kicked, punched, or otherwise hurt by someone within the past year? If so, by whom?: No Are you DNR?: No Advance Directives: No Advance Directives Information Provided: Yes Meds Allergies Allergy/AdvReac Type Severity Reaction Status Date / Time No Known Allergies Allergy Verified 09/14/23 09:24 Home Medications ?Medication ?Instructions ?Recorded ?Confirmed ?Last Taken ?Type atorvastatin 80 mg tablet 80 mg PO DAILY 09/14/23 05/31/24 06/01/24 History Exam Height,Weight and Vital Signs: Height 5 ft 11 in Weight 108.862 kg Assessment and Plan Assessment Anesthesia Assessment: Chart Reviewed Documented by User: Xavier Waldron MD 06/02/24 07:24 [facility] Past Medical History Medical History (Updated 06/01/24 @ 09:28 by Lashon Jimenez NP) HSV infection HLD (hyperlipidemia) Family History Family History (Updated 09/14/23 @ 09:24 by RISSA Chan) Paternal Grandfather Cancer of unknown origin Family history of problems with anesthesia: No Surgical History Surgical History (Updated 09/14/23 @ 09:26 by RISSA Chan) History of back surgery (1996) History of Problems with Anesthesia: No Social History Social History (Updated 09/14/23 @ 09:24 by RISSA Chan) Alcohol intake: current Alcohol intake frequency: holidays/special occasions only Patient Tobacco Use Status: Never used Tobacco Have you been hit, kicked, punched, or otherwise hurt by someone within the past year? If so, by whom?: No Are you DNR?: No Advance Directives: No Advance Directives Information Provided: Yes Meds Allergies Allergy/AdvReac Type Severity Reaction Status Date / Time No Known Allergies Allergy Verified 09/14/23 09:24 Home Medications ?Medication ?Instructions ?Recorded ?Confirmed ?Last Taken ?Type atorvastatin 80 mg tablet 80 mg PO DAILY 09/14/23 05/31/24 06/01/24 History Exam Airway Mallampati Class: II TM Dist: >3cm Neck ROM: Full Assessment and Plan Assessment Anesthesia Assessment: Anesthesia Plan Discussed Final Anesthetic Review Family History of Problems with Anesthesia: No History of Problems with Anesthesia: No NPO: Yes ASA Class: II Final Preanesthetic Review: No Changes in Pt Med Stat, Meds/Allgs Chart Reviewed, Consent Obtained/Reviewed, Anes Risks/Benef Reviewed and DNR Form (If Appl.) Patient Risk: Low Procedure Risk: Low Anesthetic Plan Anesthetic Plan: TIVA Disposition: Standard PACU
--- OUTSIDE RECORDS SUMMARY | 2024-06-02 06:36 | XMS_ITS | Continuity of Care Document ---
Author Name [facility] Organization [facility] Care Team Providers Care Plant Associate Name Role Phone [facility] Unavailable Unavailable Problems Combined list of problems [...] DoD visit for: administrative purpose Inactive Condition [facility] primary insomnia idiopathic Inactive Condition DoD adverse effect of drug therapy Inactive Condition DoD herpes simplex type I Inactive Condition DoD visit for: examination of subpopulation Active Condition [facility] visit for: screening chemical poisoning/contaminat ion Inactive Condition [facility] visit for: routine eye exam Inactive Condition [facility] Patient Counseling: Inactive Condition D oD Patient [...] ORAL, MYLAN, 500 ea. BOTTLE Cancele d [id number] : 2023 0 Pharmac y Data Transac tion Service Facilit y ATORVASTATI N CALCIUM (ATORVASTAT IN CALCIUM), 40 MG, TABLET, ORAL, MYLAN, 500 ea. BOTTLE Active [id number] 4 2023 90 Pharmac y Data Transac tion Service Facilit y ATORVASTATI N CALCIUM (ATORVASTAT IN CALCIUM), 40 MG, TABLET, ORAL, MYLAN, 500 ea. BOTTLE Cancele d [id number] : 2023 0 Pharmac y Data Transac tion Service Facilit y ATORVASTATI N CALCIUM (ATORVASTAT IN CALCIUM), 80 MG, TABLET, ORAL, MYLAN, 500 ea. BOTTLE Active [id number] 2023 90 Pharmac y Data Transac tion Service Facilit y ATORVASTATI N CALCIUM (ATORVASTAT IN CALCIUM), 80 MG, TABLET, ORAL, MYLAN, 500 ea. BOTTLE Active [id number] 2023 90 Pharmac y Data Transac tion Service Facilit y VALACYCLOVI R (VALACYCLOV IR HCL), 500 MG, TABLET, ORAL, MYLAN, 90 ea. BOTTLE Cancele d [id number] : 2023 0 Pharmac y Data Transac tion Service Facilit y Allergies, Adverse Reactions, Alerts Combined list of allergies from Department of Defense and Veterans Affairs facilities. It does not include entries that were removed or entered in error. Substance Category Reaction Severity Reaction type Status Date Reported Comments Source No Known Allergies Drug allergy (disorder) active 06/16/2007 [place] Immunizations Combined list of available immunizations from the Department of Defense and Veterans [facility] facilities. Immunization Series Date Given Administered By Site Reaction Lot Number CVX Code Drug Frame Hand Status Comments Source influenza, injectable, quadrivalent- pf [...] injectabl e, quadrival ent, preservat carol free [facility] meningococcal A,C,Y,W-135 (MCV4P) 2020 [id number] [employer] complet ed meningoco ccal A,C,Y,W-1 35 (MCV4P) 10/11/20 Given Ambulat ory Pharmac y meningococcal A,C,Y,W-135 (MCV4P) 2020 [id number] 114 [employer] complet ed meningoco ccal A,C,Y,W-1 35 (MCV4P) 10/11/20 Given Ambulat ory Pharmac y meningococcal polysaccharid e (groups A, C, Y and W-135) diphtheria toxoid conjugate vaccine (MCV4P) 2 2020 [id number] 114 [employer] (SEQ) comple t ed meningoco ccal polysacch aride (groups A, C, Y and W-135) diphtheri a toxoid conjugate vaccine (MCV4P) DoD COVID Vaccine Moderna 2020 [id number] 207 complet ed COVID Vaccine Moderna 06/24/20 Given Ambulat ory Pharmac y COVID Vaccine Moderna 2020 [id number] 207 complet ed COVID Vaccine Moderna 06/24/20 Given Ambulat ory Pharmac y SARS-COV-2 (COVID-19) vaccine, mRNA, spike protein, LNP, preservative free, 100 mcg or 50 mcg dose 2 2020 [id number] 207 Moderna [employer] (MOD) complet ed SARS-COV- 2 (COVID-19 ) vaccine, mRNA, spike protein, LNP, preservat carol free, 100 mcg or 50 mcg dose DoD COVID Vaccine Moderna 2020 [id number] 207 complet ed COVID Vaccine Moderna 05/30/20 Given Ambulat ory Pharmac y SARS-COV-2 (COVID-19) vaccine, mRNA, spike protein, LNP, preservative free, 100 mcg or 50 mcg dose 1 2020 [id number] 207 Moderna [employer] (MOD) complet ed SARS-COV- 2 (COVID-19 ) vaccine, mRNA, spike protein, LNP, preservat carol free, 100 mcg or 50 mcg dose DoD influenza, injectable, quadrivalent- pf 2019 [id number] 278 150 [employer] complet ed influenza , injectabl e, quadrival ent-pf 03/11/20 Given Ambulat ory Pharmac y influenza, injectable, quadrivalent- pf 2019 [id number] 150 [employer] complet ed influenza , injectabl e, quadrival ent-pf 03/11/20 Given Ambulat ory Pharmac y Influenza, injectable, quadrivalent, preservative free 0 2019 [id number] 278 150 [employer] (SEQ) complet ed Influenza [...] adsorbed DoD influenza, injectable, quadrivalent- pf 2018 [id number] 038 150 [employer] complet ed influenza , injectabl e, quadrival ent-pf 02/22/19 Given Ambulat ory Pharmac y influenza, injectable, quadrivalent- pf 2018 [id number] 038 150 [employer] complet ed influenza , injectabl e, quadrival ent-pf 02/22/19 Given Ambulat ory Pharmac y Influenza, injectable, quadrivalent, preservative free 0 2018 [id number] 038 150 [employer] (SEQ) complet ed Influenza , injectabl e, quadrival ent, preservat carol free DoD influenza, seasonal, injectable-pf 2017 [id number] 140 [employer] complet ed influenza , seasonal, injectabl e-pf 03/01/18 Given Ambulat ory Pharmac y influenza, seasonal, injectable-pf 2017 [id number] 140 [employer] complet ed influenza , seasonal, injectabl e-pf 03/01/18 Given Ambulat ory Pharmac y Influenza, seasonal, injectable, preservative free 0 2017 [id number] 140 [employer] (SEQ) comple t ed Influenza , seasonal, injectabl e, preservat carol free DoD influenza, injectable, quadrivalent- pf 2017 [id number] 150 [employer] complet ed influenza , injectabl e, quadrival ent-pf 06/25/17 Given Ambulat ory Pharmac y influenza, injectable, quadrivalent- pf 2017 [id number] 150 [employer] complet ed influenza , injectabl e, quadrival ent-pf 06/25/17 Given Ambulat ory Pharmac y Influenza, injectable, quadrivalent, preservative free 0 2017 [id number] 150 [employer] (SEQ) comple t ed Influenza , injectabl e, quadrival ent, preservat carol free DoD influenza, injectable, quadrivalent 2015 [id number] 158 [employer] complet ed influenza , injectabl e, quadrival ent 03/16/16 Given Ambulat ory Pharmac y influenza, injectable, quadrivalent 2015 [id number] 158 [employer] complet ed influenza , injectabl e, quadrival ent 03/16/16 Given Ambulat ory Pharmac y influenza, injectable, quadrivalent, contains preservative 0 2015 [id number] 158 [employer] (SEQ) comple t ed influenza , injectabl e, quadrival ent, contains preservat carol DoD influenza, seasonal, injectable-pf 2014 [id number] 140 CSL [employer] complet ed influenza , seasonal, injectabl e-pf 02/18/15 Given Ambulat ory Pharmac y influenza, seasonal, injectable-pf 2014 [id number] 140 [employer] complet ed influenza , seasonal, injectabl e-pf 02/18/15 Given Ambulat ory Pharmac y Influenza, seasonal, injectable, preservative free 1 2014 [id number] 140 [employer] (CSL) complet ed Influenza , seasonal, injectabl e, preservat carol free DoD measles/mumps /rubella virus vaccine 2014 [id number] 03 Merck & Company Inc complet ed measles/m umps/rube lla virus vaccine 08/21/14 Given Ambulat ory Pharmac y measles/mumps /rubella virus vaccine 2014 [id number] 03 [employer]ck & Company Inc complet ed measles/m umps/rube lla virus vaccine 08/21/14 Given Ambulat ory Pharmac y measles, mumps and rubella virus vaccine 0 2014 [id number] 03 Merck (MSD) complet ed measles, mumps [...] injectable, preservative free 1 2013 [id number] 140 [facility] (SKB) complet ed Influenza , [...] free DoD influenza virus vaccine, live 2011 [id number] [employer] complet ed influenza virus vaccine, live 02/12/12 Given Ambulat ory Pharmac y influenza virus vaccine, live 2011 [id number] 111 [employer] complet ed influenza virus vaccine, live 02/12/12 Given Ambulat ory Pharmac y influenza virus vaccine, live, attenuated, for intranasal use 1 2011 [id number] 111 [employer] (CSL) complet ed influenza virus vaccine, live, attenuate d, for intranasa l use DoD influenza, seasonal, injectable 2010 [id number] 141 sanofi pasteur complet ed influenza , seasonal, injectabl e 04/03/11 Given Ambulat ory Pharmac y influenza, seasonal, injectable 2010 [id number] 141 sanofi pasteur complet ed influenza , seasonal, injectabl e 04/03/11 Given Ambulat ory Pharmac y Influenza, seasonal, injectable 6 2010 [id number] 141 Sanofi Pasteur ([facility]) complet ed Influenza , seasonal, injectabl e DoD vaccinia (smallpox) vaccine 2009 VV04-00 [id number] 75 Unknown complet ed vaccinia (smallpox ) vaccine 12/14/09 Given Ambulat ory Pharmac y typhoid Vi capsular polysaccharid e vac 2009 [id number] 101 sanofi pasteur complet ed typhoid Vi capsular polysacch aride vac 12/14/09 Given Ambulat ory Pharmac y anthrax vaccine 2009 [id number] 24 [employer] complet ed anthrax vaccine 12/14/09 Given Ambulat ory Pharmac y typhoid Vi capsular polysaccharid e vac 2009 [id number] 101 sanofi pasteur complet ed typhoid Vi capsular polysacch aride vac 12/14/09 Given Ambulat ory Pharmac y vaccinia (smallpox) vaccine 2009 VV04-00 [id number] 75 Unknown complet ed vaccinia (smallpox ) vaccine 12/14/09 Given Ambulat ory Pharmac y anthrax vaccine 2009 [id number] 24 [employer] complet ed anthrax vaccine 12/14/09 Given Ambulat ory Pharmac y anthrax vaccine 5 2009 [id number] [employer] [place] (MIP) complet ed anthrax vaccine DoD vaccinia (smallpox) vaccine 1 2009 VV04-00 [id number] 75 Unknown (UNK) complet ed vaccinia (smallpox ) vaccine DoD typhoid Vi capsular polysaccharid e vaccine 1 2009 [id number] 101 Sanofi Pasteur ([facility]) complet ed typhoid Vi capsular polysacch aride vaccine DoD tetanus, diphtheria, acellular pertu is 2008 [id number] 115 sanofi pasteur complet ed tetanus, diphtheri a, acellular pertussis 05/14/09 Given Ambulat ory Pharmac y influenza virus vaccine, live 2008 [id number] 111 [employer] comple t ed influenza virus vaccine, live 05/14/09 Given Ambulat ory Pharmac y influenza virus vaccine, live 2008 [id number] 111 [employer] comple t ed influenza virus vaccine, live 05/14/09 Given Ambulat ory Pharmac y tetanus, diphtheria, acellular pertu is 2008 [id number] 115 sanofi pasteur complet ed tetanus, diphtheri a, acellular pertussis 05/14/09 Given Ambulat ory Pharmac y influenza virus vaccine, live, attenuated, for intranasal use 1 2008 [id number] 111 [employer] (MED) complet ed influenza virus vaccine, live, attenuate d, for intranasa l use DoD tetanus toxoid, reduced diphtheria toxoid, and acellular pertu is vaccine, adsorbed 1 2008 [id number] 115 Sanofi Pasteur ([facility]) complet ed tetanus toxoid, reduced diphtheri a toxoid, and acellular pertussis vaccine, adsorbed DoD hepatitis B adult vaccine 2007 [id number] 43 GlaxoSmithKli ne complet ed hepatitis B adult vaccine 03/22/08 Given Ambulat ory Pharmac y influenza virus vaccine, live 2007 [id number] 111 [facility] comple t ed influenza virus vaccine, live 03/22/08 Given Ambulat ory Pharmac y hepatitis B adult vaccine 2007 [id number] 43 GlaxoSmithKli ne complet ed hepatitis B adult vaccine 03/22/08 Given Ambulat ory Pharmac y hepatitis B vaccine, adult dosage 3 2007 [id number] 43 [facility] (SKB) complet ed hepatitis B vaccine, adult dosage DoD influenza virus vaccine, live, attenuated, for intranasal use 1 2007 [id number] 111 [employer] (MED) complet ed influenza virus vaccine, live, attenuate d, for intranasa l use DoD anthrax vaccine 2007 [id number] 24 [employer] complet ed anthrax vaccine 08/18/07 Given Ambulat ory Pharmac y influenza virus vaccine,split 2007 [id number] 15 GlaxoSmithKli ne complet ed influenza virus vaccine,s plit 08/18/07 Given Ambulat ory Pharmac y hepatitis B adult vaccine 2007 [id number] 43 GlaxoSmithKli ne complet ed hepatitis B adult vaccine 08/18/07 Given Ambulat ory Pharmac y anthrax vaccine 2007 [id number] 24 [employer] complet ed anthrax vaccine [...] red CODE 1 2007 [id number] 15 [facility] (B) complet ed influenza virus vaccine, split virus (incl. purified surface antigen)- retired CODE DoD anthrax vaccine 4 2007 [id number] 24 [employer] [place] ([facility]) complet ed anthrax vaccine DoD hepatitis B vaccine, adult dosage 2 2007 [id number] 43 [facility] (B) complet ed hepatitis B vaccine, adult dosage DoD hepatitis B adult vaccine 2006 [id number] 43 Merck & Company Inc complet ed hepatitis B adult vaccine 01/28/07 Given Ambulat ory Pharmac y hepatitis B vaccine, adult dosage 1 2006 [id number] 43 [employer] (MSD) complet ed hepatitis B vaccine, adult dosage DoD anthrax vaccine 2006 [id number] 24 [employer] complet ed anthrax vaccine 12/23/06 Given Ambulat ory Pharmac y anthrax vaccine 3 2006 [id number] 24 [employer] [place] ([facility]) complet ed anthrax vaccine DoD anthrax vaccine 2005 [id number] 24 [employer] complet ed anthrax vaccine 05/08/06 Given Ambulat ory Pharmac y anthrax vaccine 2005 [id number] 24 [employer] complet ed anthrax vaccine 05/08/06 Given Ambulat ory Pharmac y anthrax vaccine 2 2005 [id number] 24 [employer] [place] ([facility]) complet ed anthrax vaccine DoD anthrax vaccine 2005 [id number] 24 [employer] complet ed anthrax vaccine 04/14/06 Given Ambulat ory Pharmac y influenza virus vaccine,split 2005 [id number] 15 sanofi pasteur complet ed influenza virus vaccine,s plit 04/14/06 Given Ambulat ory Pharmac y anthrax vaccine 2005 [id number] 24 [employer] complet ed anthrax vaccine 04/14/06 Given Ambulat ory Pharmac y influenza virus vaccine,split 2005 [id number] 15 sanofi pasteur complet ed influenza virus vaccine,s plit 04/14/06 Given Ambulat ory Pharmac y influenza virus vaccine, split virus (incl. purified surface antigen)-reti red CODE 1 2005 [id number] 15 Sanofi Pasteur ([facility]) complet ed influenza virus vaccine, split virus (incl. purified surface antigen)- retired CODE DoD varicella virus vaccine 0 2005 21 () Not Given varicella virus vaccine DoD anthrax vaccine 1 2005 [id number] [address] [facility] ([facility]) complet ed anthrax vaccine DoD influenza virus vaccine,split 2004 [id number] 15 sanofi pasteur complet ed influenza virus vaccine,s plit 03/13/05 Given Ambulat ory Pharmac y influenza virus vaccine, split virus (incl. purified surface antigen)-reti red CODE 1 2004 [id number] 15 Sanofi Pasteur ([facility]) complet ed influenza virus vaccine, split virus [...] ADM Date DC Date Status [facility] [id number] cdtf/tr stefani/ KIMBERLY Nassar 08/01 Released w/o Limitations [facility] ) DENTAL [id number] exam MARCELA HERMAN 02/01 Released w/o Limitations [facility](D ental [facility] ) [facility]) DENTAL [id number] ANNIE Hairston 02/01 Released w/o Limitations [facility](D ental Clinic FLORES) [place], [place]([facility] OUTPATIENT [id number] MEDS ( 1-181,P RT MARILU REYNOLDS) MARISA ANDRE ALAN 01/03 Released w/o Limitations [place], [place]([facility]) [facility] Facility OUTPATIENT [id number] 03/15 Released w/o Limitations Theater Fac[facility] OUTPATIENT [id number] 07/05 Released w/o Limitations Theater Facilit y [facility](Patrick scom [facility] Team B) TELE CONSULT [id number] RONALDO Zepeda 08/11 [facility](H anscom [facility] Team B) [facility](Opt ometry [facility] [place]) OUTPATIENT [id number] Annual Eye FOREST [place] 08/24 Released w/o Limitations [facility](O ptometr y Cl [place]) [facility](Opt ometry [facility] [place]) OUTPATIENT [id number] f/u retinal hemorrh age superfi cial left eye [facility] LUX 10/07 Released w/o Limitations [address] [place] [address](O ptometr y Cl [place]) [place], [place]([facility]) OUTPATIENT [id number] Notes Entered by: ERIKA MARSHALL 27 Feb 2016 0612 ------- ------- ------- ------- -- Metabol ic Test BRENDAN CHASE 02/26 Released w/o Limitations [place], [place]([facility]) [place]([facility]) OUTPATIENT [id number] Notes Entered by: ERIKA MARSHALL 29 Feb 2016 0715 ------- ------- ------- ------- -- LISA CAMEJO 02/28 Released w/o Limitations [place], [place]([facility]) [address] [place] [address]([facility] Team A) TELE CONSULT [id number] Notes Entered by: ALL MOREL 28 Oct 2021 1014 ------- ------- ------- ------- -- Other - Separat ing from INDU Vital 10/28 Other Not Elsewhere Classified [facility] Team A) [facility] Team A) TELE CONSULT [id number] Notes Entered by: MARSHALL KAUR 10 Dec 2021 1106 ------- ------- ------- ------- -- OTHER- INDU MARTÍNEZ 12/10 Other Not Elsewhere Classified [facility] Team A) [facility]) OUTPATIENT [id number] SHPE Resched VERONICA Talbert 12/17 Released w/o Limitations [facility]) [facility](Hea ring Conservat ion) OUTPATIENT [id number] SHPE hearing exam JOANNE BUENO 12/18 Released w/o Limitations [address] [place] [address](H earing Conserv ation) Procedures Combined list of: 1) Procedures from Department of Veterans Affairs facilities going back up to thelast 18 months, not all VA non-surgical procedures are included; 2) All procedures from the Department of Defense facilities. Procedure Procedure Type Code Date Perfomer Comments Sourc e No data available for this section Ambulatory Pharmacy PURE TONE AUDIOMETRY (THRESHOLD); AIR ONLY 2002 [facility] OPHTHALMOLOGICAL SERVICES: MEDICAL EXAMINATION AND EVALUATION, WITH INITIATION OR CONTINUATION OF DIAGNOSTIC AND TREATMENT PROGRAM; COMPREHENSIVE, ESTABLISHED PATIENT, 1 OR MORE VISITS 2002 [facility] ELECTROCARDIOGRAM, ROUTINE ECG WITH AT LEAST 12 LEADS; TRACING ONLY, WITHOUT INTERPRETATION AND REPORT 2002 DoD PURE TONE AUDIOMETRY (THRESHOLD); AIR ONLY 2010 DoD HEALTH&BEHAV ASSESSMENT (EG, HEALTH-FOC CLINICAL INTERVIEW, BEHAVIORAL OBSERVATIONS, PSYCHOPHYSICOLOGICAL MONITOR, HEALTH-ORIENT QUESTIONNAIRES), EA 15 MIN [id number] W THE PATIENT; INIT ASSESSMENT 2010 [facility] PURE TONE AUDIOMETRY (THRESHOLD); AIR ONLY 2010 [facility] TYPHOID VACCINE, CAPSULAR POLYSACCHARIDE (VICPS), FOR INTRAMUSCULAR USE 2009 [facility] PURE TONE AUDIOMETRY (THRESHOLD); AIR ONLY 2009 [facility] INDIVIDUAL PSYCHOTHERAPY, INSIGHT ORIENTED, BEHAVIOR MODIFYING AND/OR SUPPORTIVE, IN AN OFFICE OR OUTPATIENT FACILITY, APPROXIMATELY 20 TO 30 MINUTES [id number] WITH THE PATIENT 2009 [facility] PURE TONE AUDIOMETRY (THRESHOLD); AIR ONLY 2021 [facility] OPHTHALMOLOGICAL SERVICES: MEDICAL EXAMINATION AND EVALUATION, WITH INITIATION OR CONTINUATION OF DIAGNOSTIC AND TREATMENT PROGRAM; COMPREHENSIVE, ESTABLISHED PATIENT, 1 OR MORE VISITS 2011 [facility] DETERMINATION OF REFRACTIVE STATE 2011 [facility] MEDICAL NUTRITION THERAPY; GROUP (2 OR MORE INDIVIDUAL(S)), EACH 30 MINUTES 2005 [facility] SCREENING TEST, PURE TONE, AIR ONLY 2004 [facility] WEIGHT MANAGEMENT CLASSES, NON-PHYSICIAN PROVIDER, PER SESSION 2015 [facility] VITAL SIGNS (TEMPERATURE, PULSE, RESPIRATORY RATE, AND BLOOD PRESSURE) DOCUMENTED AND REVIEWED (CAP) (EM) 2015 [facility] Weight management cla es, non-physician provider, per se ion 2015 LISA NIETO [facility] Vital Signs Recorded Vital Signs Recorded 2015 BRENDAN CHASE Pulmon Function - O2 Uptake - Gas Analysis Rest, Ind Pulmon Function - [place] [address] 2015 BRENDAN CHASE Ophthalmological Prior Patient Start Comprehensive Care Ophthalmological Prior Patient Start Comprehensive Care 99063 2011 FOREST SALMERON [facility] Determination Of Refractive State Determination Of Refractive State 07575 2011 FOREST SALMERON [facility] Ophthalmological New Patient Start Comprehensive Care Ophthalmological New Patient Start Comprehensive Care 54716 2011 FOREST [place] [facility] Health And Behav A e mt Each 15 Min Initial A e ment Health And Behav Assessmt Each 15 Min Initial Assessment 06088 2010 CANDELARIO GONZALEZ [facility] Clinical Social Work Individual Outpatient Counseling 30 Minutes Clinical Social Work Individual Outpatient Counseling 30 Minutes [id number] 2009 MONIQUE HANNAH [facility] Threshold Audiogram (Pure Tone) Threshold Audiogram (Pure Tone) 74563 XIMENA JOANNE R [facility] Preventive Medicine Administration Of Health Risk Questionnaire Patient-Focused Preventive Medicine Administration Of Health Risk Questionnaire Patient-Focused 27346 FRED VERONICA [facility] Threshold Audiogram Right Ear Threshold Audiogram Right Ear 75097 VERONICA IBARRA [facility] Threshold Audiogram Left Ear Threshold Audiogram Left Ear 27830 FRED, VERONICA [facility] Social History Combined list of available smoking, tobacco, and other social history from Department of Defense and Veterans Affairs facilities. Social History Type Response Date Comment Sour e This section is an empty social history section. [facility] Assessment and Plan Combined list of future care activities from Department of Defense and Veterans Affairs facilities (e.g., assessment and plan notes, appointments, orders, and referrals). Additional future care activities may be listed in the Plan of Care section. Result Assessment and Plan Date Source Assessment and Plan No data available for this section 06/02/2024 Ambulatory Pharmacy Functional Status Combined list of recent functional and cognitive assessments recorded at Department of Defense and [facility] Affairs ([place] Functional [place] Measurement (FIM) Scale: 1 = Total Assistance (Subject = 0% +), 2 = Maximal Assistance (Subject = 25% +), 3 = Moderate Assistance (Subject = 50% +), 4 = Minimal Assistance (Subject = 75% +), 5 = Supervision, 6 = Modified [place] (Device), 7 = Complete [place] (Timely, Safely). Assessment Date/Time Source Assessment Type Assessment Skill Assessment Score Assessment Details No data available for this section
--- NOTE | 2024-06-02 06:42 | MHC.SHP ---
Pre-Procedural Eval Section A - 24 Hr Update-Section A only Date of Service: 06/02/24 Section B - Complete if H&P > 30 days Chief Complaint: Encounter for screening for malignant neoplasm of Relevant Family History (Specify if Yes): No Relevant Social History: None Present Medications: see Short Stay Collaborative assessment Medical History: Significant History ( HSV infection HLD (hyperlipidemia)) History of Previous Operations: Relevant previous surgery/procedure and date(s) (History of back surgery (1996)) Allergies: Allergies Allergy/AdvReac Type Severity Reaction Status Date / Time No Known Allergies Allergy Verified 09/14/23 09:24 Review of Systems Sugical H&P ROS: Negative: Constitution, Cardiovascular, Respiratory, Neurological, Psychiatric, Hem-Onc, Allergic/Immunologic, Gastrointestinal, Genitourinary, Musculoskeletal, Integumentary, Endocrine and Eyes/Ears/Nose/Throat Exam Surgical H&P Exam: Normal: HEENT, Normal: Heart, Normal: Lungs, Normal: Extremities, Normal: Abdomen, Normal: Skin and Normal: Neurological Plan Diagnosis/Plan: Unchanged I have reviewed the history and physical and performed a pertinent physical examination on my patient. No changes have occurred unless specified. Time Spent With Patient Time: Total time managing care of this patient today ____ minutes.
[2024-06-02 06:46] VITALS: BP 165/89; PULSE 67; RESP 20; TEMP 36.9; O2SAT 98; BMI 33.7
[2024-06-02] MEDS: Lactated Ringers 1,000 ML 100 ML IVCONT (07:07)
--- NOTE | 2024-06-02 08:00 | HO.OPN-COLON ---
Colonoscopy Operative Note Operative Note Date of Service: 06/02/24 Narrative: Operative Information Procedure Description: Colonoscopy Indication: screening Anesthesia: MAC COLONOSCOPY Instrument: Olympus variable stiffness pediatric scope 190L Colonoscopy Monitoring: Vital signs and clinical assessment, continuous EKG monitoring, Pulse oximetry, Carbon Dioxide monitoring and blood pressure monitoring were done throughout the procedure. Colon withdrawal time was 9 minutes. Procedure: The patient was placed in the left lateral decubitis position and pre-procedure medications were administered. After a digital rectal examination of the ano-rectum, the video colonoscope was inserted into the rectum and advanced through the colon to the cecum/TI. The colonoscope was slowly withdrawn in a retrograde panoramic fashion and the colon mucosa was carefully examined including a retroflexed view of the rectum. Findings and interventions are described below. Procedure Difficulty: easy Findings: Terminal Ileum-normal Cecum: 8-9 mm sessile polyp removed with cold snare right sided retroflexion- normal Ascending Colon: 4-6 mm sessile polyp removed with cold snare Transverse Colon -normal Descending Colon:normal Sigmoid Colon: normal Rectum: Retroflexion with small internal hemorrhoids seen, grade I Anorectum - normal Intervention: cold snare Colon preparation: Baldwin Bowel Preparation Scale Right colon; 2 Transverse colon: 2 Left colon; 2 (0 = Unprepared colon segment with mucosa not seen due to solid stool that cannot be cleared. 1 = Portion of mucosa of the colon segment seen, but other areas of the colon segment not well seen due to staining, residual stool and/or opaque liquid. 2 = Minor amount of residual staining, small fragments of stool and/or opaque liquid, but mucosa of colon segment seen well. 3 = Entire mucosa of colon segment seen well with no residual staining, small fragments of stool or opaque liquid) Impression and Post Procedure Diagnosis: colon polyps internal hemorrhoids Plan: High fiber diet leaflet Avoid straining at stool, epsom salts and sitz bath, anusol supps or cream Repeat Colonoscopy in 5-7 years if adenomaous polyps, 10 yrs if non adenomatous or earlier if clinically indicated Above findings were reviewed with the patient and relevant handouts were provided if indicated.
[2024-06-02 08:04] VITALS: BP 116/63; PULSE 62; RESP 15; TEMP 36.2; O2SAT 96
[2024-06-02 08:20] VITALS: BP 125/79; PULSE 64; RESP 16; TEMP 36.2; O2SAT 96
== END 2024-06-02 08:49 | disposition home or self-care (01) ==
PROVIDERS: PCP Internal Medicine; Visit Provider Internal Medicine Gastroenterology
PROC: 0DJD8ZZ Inspection of Lower Intestinal Tract, Via Natural or Artificial Opening Endoscopic (ICD-10-PCS; CPT 45378; principal; 2024-06-02 07:30)
DX: Z12.11 Encounter for screening for malignant neoplasm of colon (principal); D12.0 Benign neoplasm of cecum; D12.2 Benign neoplasm of ascending colon; K64.0 First degree hemorrhoids; E78.5 Hyperlipidemia, unspecified; Z79.899 Other long term (current) drug therapy; Z98.890 Other specified postprocedural states
CPT/HCPCS: 45385; 88305; J2003; J2704

== ENCOUNTER → 2024-06-02 06:34 | Outpatient (BNV) | payer OTHER, SELFPAY | PROVIDERS: PCP Internal Medicine; Visit Provider Internal Medicine Gastroenterology | DX: Z12.11 Encounter for screening for malignant neoplasm of colon (principal); K63.5 Polyp of colon; K64.0 First degree hemorrhoids | CPT/HCPCS: 45385 ==